=== PATIENT | male | born 1975 | race Caucasian/White ===

== ENCOUNTER 2018-11-05 12:15 | Day surgery (SDC) | payer BC ==
[2018-10-30 17:39] VITALS: BMI 29.2
[2018-11-05] MEDS ORDERED: MIDAZOLAM HCL 2 MG/2 ML SINGLE DOSE VIAL ONE (12:53)
[2018-11-05] MEDS ORDERED: LIDOCAINE HCL 2% (20ML MULTI-DOSE VIAL) NR ONE (13:10)
[2018-11-05] MEDS ORDERED: ONDANSETRON 4 MG/2 ML VIAL IVPUSH PRN (13:34)
[2018-11-05] MEDS ORDERED: oxyCODONE HCL 5 MG TABLET PO PRN ×2 (13:34)
[2018-11-05] MEDS ORDERED: ACETAMINOPHEN 325 MG TABLET (FP) PO PRN (13:34)
[2018-11-05] MEDS ORDERED: LACTATED RINGERS SOLUTION 1,000 ML IV SCH (13:45)
[2018-11-05 13:53] VITALS: TEMP 98
[2018-11-05 14:02] VITALS: BP 117/70; PULSE 69
--- NOTE | 2018-11-06 08:50 | OP ---
DATE OF OPERATION: 11/05/2018 PREOPERATIVE DIAGNOSIS: Right index finger mass. POSTOPERATIVE DIAGNOSIS: Right index finger mass. OPERATIVE PROCEDURE: Right index finger mass excision. SURGEON: Bandar Glass MD ANESTHESIA: Local with sedation. COMPLICATIONS: None. ESTIMATED BLOOD LOSS: Minimal. INDICATION FOR PROCEDURE: The patient is a 43-year-old male with the above finding indicated for operative treatment. Risks, benefits, and alternatives were discussed with the patient at length. Proper informed consent was obtained. PROCEDURE: After proper identification of patient and correct operative site, patient was brought to the operating room, placed supine on OR table. Prominences well padded. Sedation was given by the anesthesiologist. Local anesthesia was given with 2% lidocaine. Right upper extremity was prepped and draped in usual sterile fashion. Well-padded tourniquet was placed as well as a sterile prep and Esmarch bandage to exsanguinate right upper extremity. Tourniquet was inflated to 250 mmHg. The mass was over the dorsal radial aspect of the proximal phalangeal segment. It was ellipsed out in whole including the skin and subcutaneous tissues. Flaps were elevated on both sides of the incision, and the wound was reapproximated with a 5-0 nylon suture. Mass appeared to be an epidermal inclusion cyst, but was sent for pathological evaluation. Patient was brought to Recovery condition. He tolerated the procedure well. BANDAR GLASS M.D. [id number]
--- NOTE | 2018-11-07 17:21 | PATH ---
Surgical Pathology Report Patient Name: ELIZABETH DORMAN Med. Rec. #: [id number] /Age/Gender: 1975 (Age: 43) / M Account: [id number] Location: [facility] Taken: 11/05/2018 Received: 11/05/2018 Reported: 11/07/2018 Physicians: Bandar Barnes M.D. Specimen(s) Received MASS OF RIGHT INDEX FINGER Clinical History Right index finger mass Final Diagnosis INDEX FINGER, RIGHT, MASS, EXCISION: INFLAMED EPIDERMAL INCLUSION CYST WITH ASSOCIATED GIANT CELL REACTION. Electronically Signed Abigail Lorenzana M.D. Gross Description Received in formalin labeled "mass right index finger," is a 1.4 x 0.5 cm dumont, elliptical, unoriented portion of skin excised to a depth of 0.4 cm. Sectioning reveals a disrupted cyst. The specimen is serially sectioned and entirely submitted in one cassette. /11/06/2018 saudi11/06/2018
== END 2018-11-05 14:05 | disposition home or self-care (01) ==
LOC: FASU 12:15
PROVIDERS: ATTEND Orthopaedic Surgery Hand Surgery
PROC: 0JBJ0ZX Excision of Right Hand Subcutaneous Tissue and Fascia, Open Approach, Diagnostic (ICD-10-PCS; principal; 2018-11-05 13:19)
DX: L72.0 Epidermal cyst (principal)
CPT/HCPCS: 88304-TC